=== PATIENT | male | born 1950 | race Caucasian/White ===

== ENCOUNTER 2017-10-05 05:51 | Day surgery (SDC) | payer BC ==
[2017-10-04 14:40] VITALS: BMI 30.5
[2017-10-05] MEDS ORDERED: Fluorouracil 100 MG, Enoxaparin Sodium 25 MG, EPINEPHrine 0.3 MG in Ophthalmic Irrigati... IVPB SCH (06:00)
[2017-10-05] MEDS ORDERED: Phenylephrine HCl 2.5% Ophth Soln 5 ML BOT ONE (06:09)
[2017-10-05] MEDS ORDERED: Cyclopentolate 1% Opth Drop 2 ML BOT ONE (06:09)
[2017-10-05] MEDS ORDERED: Diprivan 20 ML ONE (06:29)
[2017-10-05] MEDS ORDERED: Midazolam HCl 2 mg/2 ml Vial ONE (06:29)
[2017-10-05] MEDS ORDERED: Fentanyl 100 MCG/2 ML VIAL ONE (06:29)
--- NOTE | 2017-10-05 08:48 | OP ---
DATE OF SURGERY: 10/05/2017 PREOPERATIVE DIAGNOSIS: Vitreous opacification, vitreous membranes, right eye. POSTOPERATIVE DIAGNOSIS: Vitreous opacification, vitreous membranes, right eye. PROCEDURE: Pars plana vitrectomy and membrane peel, right eye. SURGEON: Abdirahman Morgan M.D. ANESTHESIA: Local with monitored anesthesia care. COMPLICATIONS: None. PROCEDURE IN DETAIL: The patient was identified in the preoperative holding area. Appropriate infor med consent for planned surgical procedure on the right eye had been obtained. The patient was trans ported to the operative suite where appropriate cardiopulmonary monitoring was established. Local an esthesia was obtained using retrobulbar and modified Van Lint lid block using 50/50 mixture of 4% lid ocaine and 0.75% bupivacaine. The patient was prepped and draped in the usual sterile manner for oph thalmic surgery on the right eye. Lid speculum was placed in the right eye. The 25-gauge trocars we re placed in conjunctiva and sclera supratemporally, inferotemporally, and supranasally. Infusion li ne was placed inferotemporally. Light pipe and vitreous cutter were inserted into the eye. Core of vitrectomy was performed. Posterior hyaloid face was elevated using vacuum suction and peeled into t he retinal periphery. A 360 vitreous dissection was performed. Indirect ophthalmoscopy was used to examine the retina 360 degrees. No holes, breaks, or tears were identified. Trocars were removed an d eye was noted to retain pressure well. Antibiotic ointment were placed, and the eye was patched an d shielded. The patient was taken to the postoperative recovery unit in good condition having suffer ed no immediate perioperative complications. Patient was instructed to leave the patch and shield on and follow up with Dr. Morgan.
[2017-10-05] MEDS ORDERED: Lidocaine 1% PF 5 ML VIAL ONE (16:15)
[2017-10-05] MEDS ORDERED: Propofol 200 MG/20 ML VIAL ONE (16:15)
== END 2017-10-05 08:20 | disposition home or self-care (01) ==
LOC: SDC 05:51
PROVIDERS: ATTEND Ophthalmology Retina Specialist
PROC: 08T43ZZ Resection of Right Vitreous, Percutaneous Approach (ICD-10-PCS; principal; 2017-10-05)
PROC: 08NE3ZZ Release Right Retina, Percutaneous Approach (ICD-10-PCS; principal; 2017-10-05)
DX: H43.311 Vitreous membranes and strands, right eye (principal); F17.220 Nicotine dependence, chewing tobacco, uncomplicated; I10 Essential (primary) hypertension; Z79.899 Other long term (current) drug therapy; Z88.0 Allergy status to penicillin; Z91.030 Bee allergy status; Z91.038 Other insect allergy status; Z90.49 Acquired absence of other specified parts of digestive tract
CPT/HCPCS: J0171; J1650; J2001; J2250; J2704; J3010; J9190

== ENCOUNTER 2024-04-11 11:42 | Outpatient (CLI) | payer MEDICARE ==
[2024-04-11 13:07] LABS: #Basophils 0.09 10x3/uL (0.0-0.2); #Eosinphils 0.14 10x3/uL (0.0-0.5); #Monocytes 0.54 10x3/uL (0.0-1.1); %Basophils 1.6 % (0.0-2.0); %Eosinophils 2.4 % (0.0-6.0); %Lymphocytes 21.8 % (18.0-47.0); %Monocytes 9.4 % (0.0-10.0); %Neutrophils 64.1 % (40.0-75.0); Hematocrit 38.9 % (38.8-50.0); Hemoglobin 14.3 g/dL (13.5-17.5); Mean Corpuscular HGB CONC 36.8 g/dL (32.0-36.0); Mean Corpuscular Hemoglobin 36.9 pg (27.0-33.0); Mean Corpuscular Volume 100.3 fL (81.2-95.1); Platelet Count 200 10x3/uL (150-450); RBC Distribution Width 11.4 % (11.5-14.5); Red Blood Cell (RBC) Count 3.88 10x6/uL (4.32-5.72); White Blood Cell (WBC) Count 5.8 10x3/uL (3.5-10.5)
[2024-04-11 13:08] LABS: ALT (SGPT) 27 U/L (8-55); AST (SGOT) 25 U/L (5-34); Albumin 4.3 g/dL (3.4-4.8); Alkaline Phosphatase 64 U/L (40-110); Anion Gap 16 mmol/L (10-20); BUN (Urea Nitrogen) 8 mg/dL (8.4-25.7); Bilirubin, Total 0.6 mg/dL (0.2-1.2); Calc. Creatinine Clearance 0 mL/min (70-130); Calcium 9.2 mg/dL (7.8-10.44); Carbon Dioxide 19 mmol/L (23-31); Chloride 97 mmol/L (98-107); Estimated GFR 94; Globulin 2.6 g/dL (2.4-3.5); Glucose 104 mg/dL (83-110); Potassium 4.2 mmol/L (3.5-5.1); Protein, Total 6.9 g/dL (5.8-8.1); Sodium 128 mmol/L (136-145)
== END 2024-04-11 11:43 | disposition home or self-care (01) ==
LOC: LABBT 11:42
PROVIDERS: ATTEND Internal Medicine Cardiovascular Disease
DX: Z01.818 Encounter for other preprocedural examination (principal)
CPT/HCPCS: 80053; 85025; 93005; 93010

== ENCOUNTER 2024-04-15 06:13 | Day surgery (SDC) | payer MEDICARE ==
[2024-04-11 12:13] VITALS: BMI 33.6
[2024-04-15] MEDS ORDERED: Heparin 10,000 UNITS/ 10 ML VIAL ONE (06:28)
[2024-04-15] MEDS ORDERED: fentaNYL 50 mcg/mL 1 mL Vial ONE (07:24)
[2024-04-15] MEDS ORDERED: Midazolam HCl 2 mg/2 ml Vial ONE (07:24)
[2024-04-15 07:46] LABS: Cardiac Risk 2.5 (Less than 4.5)
[2024-04-15] MEDS ORDERED: Protamine Sulfate 50 MG/5 ML VIAL ONE (08:00)
== END 2024-04-15 15:07 | disposition home or self-care (01) ==
LOC: CCL 06:13
PROVIDERS: ATTEND Internal Medicine Cardiovascular Disease
PROC: 4A023N7 Measurement of Cardiac Sampling and Pressure, Left Heart, Percutaneous Approach (ICD-10-PCS; principal; 2024-04-15)
DX: I25.10 Atherosclerotic heart disease of native coronary artery without angina pectoris (principal); I10 Essential (primary) hypertension; Z88.0 Allergy status to penicillin; Z90.49 Acquired absence of other specified parts of digestive tract; Z79.899 Other long term (current) drug therapy
CPT/HCPCS: 80061; 85347 ×2; 93458; C1769 ×2; J1644; J2250; J2720; J3010; 99152